=== PATIENT | male | born 2000 | race Caucasian/White ===

== ENCOUNTER 2021-11-24 18:51 | Emergency (ER) | payer SELFPAY ==
[2021-11-24] MEDS ORDERED: Lidocaine 1% (PF) 30 ML VIAL ONE (19:15)
[2021-11-24] MEDS ORDERED: Triple Antibiotic Oint 1 GM Packet ONE (19:36)
[2021-11-24] MEDS ORDERED: Sulfameth/Trimethoprim DS 800-160mg TAB ONE (19:37)
== END 2021-11-24 19:46 | disposition home or self-care (01) ==
LOC: NAV ERS 18:51
DX: S60.352A Superficial foreign body of left thumb, initial encounter (principal); W45.8XXA Other foreign body or object entering through skin, initial encounter
CPT/HCPCS: 10120; J2001